=== PATIENT | male | born 1955 | race Caucasian/White ===

== ENCOUNTER 2019-05-29 07:53 | Day surgery (SDC) | payer BC ==
[~2019-05-29] VITALS: Ht 180.3 cm; Wt 110.0 kg
--- NOTE | ~2019-05-29 | HP ---
PATIENT: PHILL SIMONS MEDICAL RECORD: [id number] ACCOUNT: [id number] LOCATION:[facility] : 55 ADMISSION DATE: 05/29/19 PCP: SUNNY VANG MD HISTORY AND PHYSICAL EXAMINATION CHIEF COMPLAINT: Polyps. HISTORY OF PRESENT ILLNESS: The patient has a history of cecal polyp as well as a serrated adenoma of the ascending colon. Cecal polyp was a tubular adenoma. The risks, possible complications and alternatives to surveillance colonoscopy were explained to the patient. He elects to proceed. PAST MEDICAL AND SURGICAL HISTORY: Coronary artery disease, hypertension, history of myocardial infarction, history of coronary artery stents, history of [place]'s esophagus, history of hernia repair, history of left-sided tendon repair of the arm, noninsulin-dependent diabetes mellitus. HOME MEDICATIONS: Please see the nursing list. He is still taking Plavix, but he has quit taking it last Tuesday. ALLERGIES: No known drug allergies. REVIEW OF SYSTEMS: Negative for renal disease or hepatitis. Negative for CVA or seizures. PHYSICAL EXAMINATION: GENERAL: The patient does not appear acutely ill. He does not appear chronically ill. VITAL SIGNS: Reviewed. EARS: External ears appear normal. EYES: Extraocular movements are intact. NECK: Trachea is midline. CHEST: No intercostal retractions. PULMONARY: Nonlabored, no stridor. IMPRESSION: History of colon polyps, in need of surveillance colonoscopy. PLAN: Surveillance colonoscopy. TRANSINT:[id number] Voice Confirmation ID: [id number] DOCUMENT ID: [id number] MELISA LOAIZA MD CC: SUNNY VANG MD and RUBEN CASTLE [id number] DICTATION DATE: 05/29/19 1455 ENVIRONMENTAL SERVICES ASSISTANT: 05/29/19 1518 [facility] [address] [place] [address]
--- NOTE | ~2019-05-29 | OP ---
PATIENT NAME: PHILL SIMONS MEDICAL RECORD: [id number] :55 LOCATION:[facility] ADMISSION DATE: SURGEON: MELISA LOAIZA MD DATE OF OPERATION: 05/29/2019 PRINCIPAL DIAGNOSIS: History of colon polyps, in need of surveillance colonoscopy. POSTOPERATIVE DIAGNOSES: 1. History of colon polyps in need of surveillance colonoscopy. 2. No evidence of persistence or regrowth of the cecal and ascending colon polyps. 3. Two new polyps, both sessile, both less than 1.2 cm in size. PROCEDURES: 1. Total colonoscopy to cecum. 2. Hot biopsy forceps polypectomies times 2. SURGEON: Melisa Loaiza MD PRIMARY SUBSTANCE ABUSE COUNSELOR: None. BLOOD LOSS: Minimal. ANESTHESIA: IV sedation. COMPLICATIONS: None. The risks, possible complications and alternatives to the procedure were explained to the patient. He elects to proceed. The discussion specifically included, but was not limited to, bleeding requiring an emergency reoperation, infection, endoscopic perforation. ENDOSCOPIC COURSE: The patient was conveyed to endoscopy suite electively on 05/29/2019, IV sedation was induced by the anesthesia staff. The patient was placed in the Schulz position. A digital rectal examination was performed. A colonoscope was inserted through the anus. It was easily advanced to the cecum. The prep was adequate. I slowly withdrew the endoscope. I irrigated and aspirated extensively. I dragged the folds. The pullback was greater than 13-minute pullback. I utilized normal imaging as well as narrow band imaging throughout the colon and rectum. Two hot biopsy forceps polypectomies were performed removing these polyps in their entireties. A retroflexed view was obtained in the rectum. I then unretroflexed the scope and removed it under direct vision. I will see the patient in the office in 3 weeks to discuss the results of his biopsies. Our plan for his next colonoscopy to take place in 3 years. Alternatively, I may give the patient the opportunity to return to see Dr. Archibald for surveillance colonoscopies in the future. TRANSINT:[id number] Voice Confirmation ID: [id number] DOCUMENT ID: [id number] OPERATIVE REPORT [id number] PHILL SIMONS MELISA LOAIZA MD CC: SUNNY VANG MD and RUBEN ARCHIBALD [phone] DICTATION DATE: 05/29/19 1541 GARBAGE TRUCK HELPER: 05/29/192226 [facility] 05/29/19 [facility] [address] [place] [id number]
[~2019-05-29 07:53] MED LIST: CARAFATE1 G PO; ISOSORBIDE MONO30 M1 PO; LIPITOR80 MG PO; LISINOPRIL10 MG PO; METOPROLOL TART50 MG PO; PLAVIX75 MG PO; PROTONIX40 MG PO
[2019-05-29 08:35] LABS: HEMATOCRIT 42.5 % (42.0-54.0); HEMOGLOBIN 14.6 g/dL (13.5-17.5); MCH 30.8 pg (26.0-34.0); MCHC 34.4 g/dL (31.0-37.0); MCV 89.7 fL (80.0-100.0); MEAN PLATELET VOLUME 9.7 fL (7.4-10.4); RBC 4.74 10x6/uL (4.20-6.10); RDW 13.7 % (11.5-14.5); WBC 7.8 10x3/uL (4.8-10.8)
[2019-05-29] MEDS ORDERED: PEPCID AC20 MG PO (09:03)
[2019-05-29] MEDS ORDERED: GLUCOPHAGE500 MG PO (09:03)
[2019-05-29] MEDS ORDERED: ZOFRAN4 MG PO (09:04)
[2019-05-29] MEDS ORDERED: NORVASC5 MG PO (09:04)
[2019-05-29 09:12] VITALS: BP 122/70; Ht 180.3 cm; Wt 110.0 kg
[2019-05-29 09:23] LABS: ANION GAP 12.3 mmol/L (8-16); CALCIUM 8.7 mg/dL (8.5-10.1); CARBON DIOXIDE 29.1 mmol/L (21.0-32.0); CREATININE - SERUM 1.1 mg/dL (0.6-1.3); POTASSIUM - SERUM 4.4 mmol/L (3.5-5.1)
--- NOTE | 2019-05-29 13:00 | NUR ---
PT ROUNDED ON AT THIS TIME, PT UPDATED ON PLAN OF CARE. PT UPSET THAT HE HAS "HAD TO WAIT SO LONG." PT UPDATED THAT HE IS 2ND IN LINE FOR PROCEDURE. NAD, WILL CONTINUE TO MONITOR.
--- NOTE | 2019-05-29 16:13 | NUR ---
DC INSTRUCTIONS GIVEN TO PT/SPOUSE. STATE UNDERSTANDING. DC'D IV CATH FULLY INTACT.
--- NOTE | 2019-05-29 16:24 | NUR ---
PT LEFT UNIT VIA WC AT 1625.
== END 2019-05-29 16:25 | disposition home or self-care (01) ==
LOC: D.OPS 07:53
PROVIDERS: Anesthesiology; ATTEND Surgery
DX: Z86.010 Personal history of colon polyps (principal); K63.5 Polyp of colon